=== PATIENT | male | born 2000 | race Caucasian/White ===

== ENCOUNTER 2021-03-26 22:02 | Emergency (ER) | payer OTHER ==
[~2021-03-26 22:02] MED LIST: FLEXERIL 10 MG10 MG PO; IBU800 MG PO; NAPROSYN500 MG PO
[2021-03-27] MEDS ORDERED: IBUPROFEN400 MG PO (00:07)
== END 2021-03-27 00:35 | disposition home or self-care (01) ==
LOC: ER1 22:02
DX: R07.89 Other chest pain (principal); R07.81 Pleurodynia
CPT/HCPCS: 71045; 99284

== ENCOUNTER 2022-02-10 07:09 | Emergency (ER) | payer OTHER ==
[~2022-02-10 07:09] MED LIST changes: +IBUPROFEN400 MG PO
[2022-02-10] MEDS ORDERED: IBUPROFEN600 MG PO (09:01)
== END 2022-02-10 09:41 | disposition home or self-care (01) ==
LOC: ER1 07:09
DX: S93.401A Sprain of unspecified ligament of right ankle, initial encounter (principal); X50.9XXA Other and unspecified overexertion or strenuous movements or postures, initial encounter; Y93.67 Activity, basketball
CPT/HCPCS: 73610; 99283